=== PATIENT | male | born 1960 | race Caucasian/White ===

== ENCOUNTER 2022-05-03 16:18 | Inpatient (IN) | payer MEDICAID ==
[~2022-05-03] VITALS: Ht 172.7 cm; Wt 68.9 kg
[2022-05-03] VITALS (8 sets, daily range): BP systolic 84–131
--- NOTE | 2022-05-03 16:20 | NUR ---
RECEIVED PT FROM VALE FLYNN. PT CHARLESA FROM [facility] FOR HYPOXIA WAS BEING TREATED AT [facility] FOR PNEUMONIA, WHEN PT SUDDENLY DESATURATED. PT TRACH, CAN NOD APROPRIATELY TO YES OR NO QUESTIONS. RT AT BEDSIDE PLACING PT ON VENT TO SETTINGS: AC, RR 18, TV 500, PEEP 6, FI02 AT 40%. PT DESATURATED TO 85%, FIO2 WAS INCREASED TO 100%. RHONCHI NOTED TO BILATERAL LOBES. PT HAS RUBI S1S2. ABDOMEN SOFT, NONDISTENDED. GTUBE IN PLACE, SITE WNL. DISTAL PULSES NORMAL, NO PERIPHERAL EDEMA. SKIN HOT, CDI. PT HAS TEMP 101.3, COOLING MEASURES IN PLACE. IV CATH 18G TO RAC. SITE WNL, S/L. PT DENIES PAIN. SIDERAILS UP X2.
[2022-05-03] MEDS ORDERED: NACL 0.9% 1,000 ML IV ONE (16:30)
[2022-05-03] MEDS ORDERED: CEFEPIME 1 GM in D5W 50 ML IV ONE (16:30)
[2022-05-03] MEDS ORDERED: CEFEPIME 1 GM/VIAL (MAXIPIME) ONE (16:46)
--- NOTE | 2022-05-03 16:50 | NUR ---
RT NOTE: 1650 Increased rate to 20 per ABG pCO2 value and per Dr Ramachandran verbal order. Patient tolerating change. Will continue to monitor and titrate FiO2 as tolerated by patient.
[2022-05-03] MEDS ORDERED: ACETAMINOPHEN 650 MG/20.3 ML UDC PO ONE (17:00)
[2022-05-03 17:12] LABS: RED CELL DISTRIBUTION WIDTH 13.6 % (9.0-15.0)
[2022-05-03 17:30] LABS: HEMATOCRIT 35.5 % (36-54); MEAN CORPUSCULAR VOLUME 95 fL (79.0-98.0); PLATELET COUNT (AUTO) 359 K/uL (130-430); RED BLOOD CELL COUNT(AUTO) 3.73 MIL/uL (4.2-6.2); WHITE BLOOD COUNT (AUTO) 19.2 K/uL (4.8-10.8)
--- NOTE | 2022-05-03 17:53 | NUR ---
TYLENOL VIA GT GIVEN FOR TEMP 101.3.
[2022-05-03 18:06] LABS: BAND % (MANUAL) 32 % (0-6); LYMPHOCYTES % (MANUAL) 1 % (20-46); MONOCYTES % (MANUAL) 1 % (0-11)
[2022-05-03 18:09] LABS: ANION GAP 3 (5-15); CALCIUM 8.1 mg/dL (8.4-11.0); CHLORIDE 100 mmol/L (98-107); CREATININE 0.64 mg/dL (0.55-1.30); GLUCOSE 111 mg/dL (70-99); POTASSIUM 3.8 mmol/L (3.5-5.1); UREA NITROGEN, BLOOD 17 mg/dL (8-21)
[2022-05-03] MEDS ORDERED: ALBU8.5H5 NEB ×2 (18:12)
[2022-05-03] MEDS ORDERED: LORA-259 GT (18:12)
[2022-05-03] MEDS ORDERED: ASCO500L4 GT (18:12)
[2022-05-03] MEDS ORDERED: ACET-2051 GT (18:12)
[2022-05-03 18:16] LABS: GFR AFRICAN AMERICAN 164 mL/min (>90)
[2022-05-03 18:20] LABS: ALANINE AMINOTRANSFERASE 96 U/L (12-78); ALBUMIN 0.8 g/dL (3.4-4.8); ASPARTATE AMINOTRANSFERASE 115 U/L (10-37); TOTAL BILIRUBIN 0.5 mg/dL (0.0-1.0)
[2022-05-03] MEDS ORDERED: LANS30CA53 GT (18:39)
[2022-05-03] MEDS ORDERED: MELA1TAB17 GT (18:39)
[2022-05-03] MEDS ORDERED: CYAN50009 GT (18:39)
[2022-05-03] MEDS ORDERED: MIDO2.5T GT (18:39)
[2022-05-03] MEDS ORDERED: CHLO473M12 PO (18:39)
[2022-05-03] MEDS ORDERED: DOCU100T10 GT (18:39)
[2022-05-03] MEDS ORDERED: ZINC50TA15 GT (18:39)
[2022-05-03] MEDS ORDERED: GLIP5TAB26 GT (18:39)
[2022-05-03] MEDS ORDERED: AMIN30LI2 GT (18:39)
[2022-05-03] MEDS ORDERED: ROCPM1 IV (18:39)
[2022-05-03] MEDS ORDERED: ACET-2634 GT (18:39)
[2022-05-03] MEDS ORDERED: MULT-976 GT (18:39)
--- NOTE | 2022-05-03 18:40 | NUR ---
Medication reconciliation completed with information provided by ZadegoABONITA. Any prior medication reconciliation on file was reviewed and corrected.
--- NOTE | 2022-05-03 18:40 | NUR ---
PATIENT ARRIVES WITH [facility] STATING FULL CODE
--- NOTE | 2022-05-03 18:55 | NUR ---
Admit bed requested Patient will be admitted to care of . Admitted to ICU unit. Diagnosis PNEUMONIA, RESPITORY FAILURE Inpatient (Yes or No) YES Observation (Yes or No) NO Orientation concerns or request close to nursing station (Yes or No) NO Covid Status PENDING On vent or bipap YES Isolation requirements PENDING Needs a sitter NO From Home (Yes or if No enter name of facility) [facility] Requires Dialysis (Yes or No) NO Med Rec Completed (Yes of No) YES
--- NOTE | 2022-05-03 19:26 | NUR ---
PT ENDORSED TO [facility] SMALLWOOD. ALL QUESTIONS AND CONCERNS ADDRESSED.
--- NOTE | 2022-05-03 19:29 | NUR ---
Pt received resting in bed, HR 122 ST, bp 97/50. Per report, pt was given Tylenol for fever. Temp rechecked at 1926, 97.2. Pt able to nod yes/no to questions. Denies discomfort at this time. at bedside. -Fifi COLLAZO
[2022-05-03 19:50] LABS: BILIRUBIN,URINE NEGATIVE (NEGATIVE); BLOOD, URINE NEGATIVE (NEGATIVE); CLARITY/URINE CLEAR (CLEAR); COLOR,URINE ORANGE (YELLOW); GLUCOSE,URINE NEGATIVE (NEGATIVE); KETONES,URINE NEGATIVE (NEGATIVE); LEUKOCYTE ESTERASE ,URINE NEGATIVE (NEGATIVE); NITRITE, URINE NEGATIVE (NEGATIVE); PROTEIN URINE 2+ (NEGATIVE)
[2022-05-03 20:35] LABS: BACTERIA,URINE FEW /HPF (None Seen); RBC,URINE 0-3 /HPF (0-3); WBC,URINE 0-3 /HPF (0-3)
--- NOTE | 2022-05-03 21:20 | NUR ---
Patient admitted to ICU bed 6 with RT, RN, and EMT. Belongings list completed. Complete and up to date summary report printed. SBAR report given at bedside to Julianne RN with opportunity for questions.
--- NOTE | 2022-05-03 22:10 | NUR ---
ADMIT NOTE Received pt from ED transported via gurney. Report taken from VALE Calix. Bath given. Pt is A/Ox1. Pt has a trach and RR 20. Pt is in sinus rhythm with hypotension. Pt is incontinent of urine and stool. Pt has limited ROM of lower and upper extremities. Pt has a pressure sore on sacrum pictures taken. All safety measures in place and will continue to monitor.
--- NOTE | 2022-05-03 22:30 | NUR ---
RT NOTES PT WAS ADMITTED AND TRANSFERRED TO ICU 6, WITH RN,RT,AND EMT, WITH NO ISSUES. PT WAS BAGGED WITH 100% FIO2 VIA AMBU BAG. NO RESP. DISTRESS NOTED. PT WAS PLACED BACK ON VENT WITH NO ADVERSE EVENTS.
[2022-05-04] VITALS (30 sets, daily range): BP systolic 62–144
--- NOTE | 2022-05-04 07:40 | NUR ---
RT NOTES FIO2 TO 0.80 PER TITRATION ORDER. RN MADE AWARE.
--- NOTE | 2022-05-04 08:00 | NUR ---
Received patient awake and responsive with tracheostomy to prescribed settings. Vital signs stable. Will continuously monitor.
--- NOTE | 2022-05-04 08:30 | NUR ---
Dr. Desouza at bedside to assess.
[2022-05-04 08:43] LABS: BASOPHILS % (AUTO) 0.2 % (0.0-2.0); HEMATOCRIT 28.4 % (36-54); LYMPHOCYTES # (AUTO) 0.5 K/uL (1.0-5.5); LYMPHOCYTES % (AUTO) 3.6 % (20.5-51.5); MEAN CORPUSCULAR VOLUME 96 fL (79.0-98.0); MONOCYTES # (AUTO) 0.5 K/uL (0.0-1.0); MONOCYTES % (AUTO) 3.4 % (1.7-9.3); NEUTROPHILS # (AUTO) 13.1 K/uL (1.8-7.7); NEUTROPHILS % (AUTO) 92.8 % (40.0-70.0); PLATELET COUNT (AUTO) 300 K/uL (130-430); RED BLOOD CELL COUNT(AUTO) 2.95 MIL/uL (4.2-6.2); RED CELL DISTRIBUTION WIDTH 13.7 % (9.0-15.0); WHITE BLOOD COUNT (AUTO) 14.1 K/uL (4.8-10.8)
[2022-05-04 09:14] LABS: CREATININE 0.57 mg/dL (0.55-1.30); PHOSPHORUS 2.1 mg/dL (2.7-4.5); POTASSIUM 3.7 mmol/L (3.5-5.1)
--- NOTE | 2022-05-04 09:55 | NUR ---
RT NOTES FIO2 TO 0.60 PER TITRATION ORDER. WILL MONITOR PT.
--- NOTE | 2022-05-04 11:26 | NUR ---
RT NOTES Elevated PIP reported to RN.
[2022-05-04] MEDS ORDERED: ALBUTEROL SULFATE 0.083% 2.5 MG/3 ML VIAL.NEB INH ONE (11:57)
[2022-05-04] MEDS ORDERED: ALBUTEROL SULFATE 0.083% 2.5 MG/3 ML VIAL.NEB INH PRN (12:00)
[2022-05-04] MEDS: ALBUTEROL SULFATE 0.083% 2.5 MG/3 ML VIAL.NEB INH SCH (12:00)
[2022-05-04] MEDS: CEFEPIME 2 GM in D5W 100 ML IV SCH ×2 (12:02→21:54)
[2022-05-04] MEDS ORDERED: ACETAMINOPHEN 650 MG/20.3 ML UDC ONE (12:59)
[2022-05-04] MEDS ORDERED: ACETAMINOPHEN 650 MG/20.3 ML UDC GT PRN (13:00)
[2022-05-04] MEDS ORDERED: GLIP5TAB13 GT (13:05)
[2022-05-04] MEDS ORDERED: CHLO473M5 PO (13:05)
[2022-05-04] MEDS ORDERED: MELA5TAB12 GT (13:05)
[2022-05-04] MEDS ORDERED: CYAN500T47 GT (13:05)
--- NOTE | 2022-05-04 14:02 | NUR ---
CONSULTATION PAGED/CALLED Reason for Consultation: PNEUMONIA, SEPSIS Person Who was Notified: MOISE Consulting Physician: DR ARREDONDO Police Lieutenant Precinct Specialty: I.D. Ordering Physician: DR LEE
--- NOTE | 2022-05-04 14:43 | NUR ---
Report received from VALE Cardona for continuity of care. Patient in stable condition. No distress noted. Patient vital signs taken. Turned and cleaned patient with patient's at bedside.
[2022-05-04 15:08] LABS: INR 1.1 (0.80-1.20); PROTHROMBIN TIME 11.4 SECS (9.5-12.5)
--- NOTE | 2022-05-04 15:46 | NUR ---
Call placed for ID consult Dr. Luis for patient consult.
[2022-05-04] MEDS: FAMOTIDINE PF 20 MG/2 ML VIAL IVP SCH (16:41)
--- NOTE | 2022-05-04 17:00 | NUR ---
RT NOTES Due to low saturation, FIO2 100% SAT 90%. Rn to call dr for change in pt. condition.
--- NOTE | 2022-05-04 17:00 | NUR ---
Spoke with RT regarding O2 saturation dropping to 88-89% at the ordered settings. Was told to increase to 100% on vent settings. Dr. Desouza made aware of episode.
--- NOTE | 2022-05-04 17:01 | NUR ---
Dr. Balderrama gave new orders for vent settings on pressure control. RT adjusted vent according to orders.
--- NOTE | 2022-05-04 17:35 | NUR ---
RT NOTES vent settings to PC 28 to achieve target VT 400-450, RR 20, PEEP 6, I-[id number]. Pt. appears to tolerate new settings. will endorse to oncoming RT to draw ABG 1 hour post change.
--- NOTE | 2022-05-04 18:10 | NUR ---
Called placed out to CRIS Silver, for orders. EUGENIO Hopper made aware.
[2022-05-04] MEDS ORDERED: VANCOMYCIN HCL 1,000 MG in NS 250 ML IV SCH ×2 (18:30→18:45)
--- NOTE | 2022-05-04 18:34 | NUR ---
Spoke with Dr. Codey RN regarding ID consult and any change in antibiotics. Updated Dr. Alegre regarding patient's dose of antibiotics. Patient's family member made aware.
--- NOTE | 2022-05-04 18:45 | NUR ---
Patient found having agonal breathing with oxygen saturation 88%
[2022-05-04] MEDS ORDERED: MIDAZOLAM IN NACL,ISO-OSMOT/PF 100 ML IV PRN (19:15)
[2022-05-04] MEDS ORDERED: MIDAZOLAM IN NACL,ISO-OSMOT/PF 100 ML IV ONE (19:17)
--- NOTE | 2022-05-04 19:20 | NUR ---
Patient found to have agonal breathing in bed. CN Ruchi notified. Vital signs taken. T- 97.4 F, P- 114, RR: 14, %O2: 89% on PC setting on mechanical ventilator, Pain: FLACC scale not responsive to painful stimuli. Dr. Desouza called and new orders noted. RT made aware of situation. weight shifter RN made aware. Patient turned accordingly. Patient still had agonal respirations despite new orders carried out. Patient's family made aware of the situation.
[2022-05-04] MEDS ORDERED: METHYLPREDNISOLONE SOD SUCC 40 MG/ML VIAL IVP ONE (19:30)
--- NOTE | 2022-05-04 19:30 | NUR ---
RN Sandor Calderon to assume care after receiving report from day RN.
[2022-05-04] MEDS: HEPARIN SODIUM,PORCINE 5,000 UNITS/ML VIAL SUBCUT SCH (21:55)
[2022-05-04] MEDS: VANCOMYCIN HCL 1,000 MG in NS 250 ML IV SCH (21:55)
--- NOTE | 2022-05-04 23:30 | NUR ---
Dr Claros updated on patient's condition, notified of ABG results and persistent hypotension. Orders received and readback/verified.
[2022-05-04] MEDS ORDERED: NS 500 ML IV ONE (23:45)
[2022-05-05] VITALS (31 sets, daily range): BP systolic 79–134
--- NOTE | 2022-05-05 00:30 | NUR ---
and family members at bedside throughout night. states this change in condition began yesterday 05.04.22 at "about 2:30 in the afternoon".
[2022-05-05] MEDS: NACL 0.9% 1,000 ML IV SCH ×2 (00:55→10:57)
[2022-05-05] MEDS: METHYLPREDNISOLONE SOD SUCC 40 MG/ML VIAL IVP SCH ×4 (00:56→18:07)
[2022-05-05] MEDS ORDERED: NOREPINEPHRINE 4 MG/4 ML VIAL IV ONE ×2 (01:43→11:35)
[2022-05-05] MEDS: NOREPINEPHRINE BITARTRATE 4 MG in NS 246 ML IV PRN (02:25)
[2022-05-05] MEDS: ALBUTEROL SULFATE 0.083% 2.5 MG/3 ML VIAL.NEB INH SCH ×4 (06:07→19:37)
[2022-05-05] MEDS: VANCOMYCIN HCL 1,000 MG in NS 250 ML IV SCH ×3 (06:29→21:15)
[2022-05-05 07:26] LABS: BASOPHILS # (AUTO) 0.1 K/uL (0.0-0.2); BASOPHILS % (AUTO) 0.3 % (0.0-2.0); EOSINOPHILS % (AUTO) 0.1 % (0.0-4.0); HEMATOCRIT 30.2 % (36-54); LYMPHOCYTES # (AUTO) 0.2 K/uL (1.0-5.5); LYMPHOCYTES % (AUTO) 1.1 % (20.5-51.5); MEAN CORPUSCULAR VOLUME 99 fL (79.0-98.0); MONOCYTES # (AUTO) 0.3 K/uL (0.0-1.0); NEUTROPHILS # (AUTO) 16.8 K/uL (1.8-7.7); NEUTROPHILS % (AUTO) 96.5 % (40.0-70.0); PLATELET COUNT (AUTO) 362 K/uL (130-430); RED BLOOD CELL COUNT(AUTO) 3.05 MIL/uL (4.2-6.2); WHITE BLOOD COUNT (AUTO) 17.4 K/uL (4.8-10.8)
[2022-05-05 07:47] LABS: ALBUMIN 0.6 g/dL (3.4-4.8); CALCIUM 8.2 mg/dL (8.4-11.0); CREATININE 1.03 mg/dL (0.55-1.30); POTASSIUM 5.3 mmol/L (3.5-5.1); TOTAL BILIRUBIN 0.2 mg/dL (0.0-1.0)
--- NOTE | 2022-05-05 07:50 | NUR ---
RT NOTES FIO2 TO 0.90 PER TITRATION ORDER. RN MADE AWARE. WILL MONITOR PT.
--- NOTE | 2022-05-05 08:55 | NUR ---
TIME OUT DR LAUREN IN THE ROOM. CONSENT OBTAINED FROM PT'S MARIO ALBERTO FOR THE PLACEMENT OF CENTRAL LINE. BRUNEIAN SPEAKING NURSE ROLLY EXPLAINED THE RISK AND BENEFITS OF THE USE OF CENTRAL CATHETER. PROCEDURE STARTED. ACCESSED THE NECK AREA.
[2022-05-05] MEDS: HEPARIN SODIUM,PORCINE 5,000 UNITS/ML VIAL SUBCUT SCH ×2 (09:00→21:16)
--- NOTE | 2022-05-05 09:10 | NUR ---
IV ACCESS NEW IV INSERTED BY DR LAUREN INTO LEFT JUGULAR AREA, OPSITE DRESSING INTACT, WITH BIOPATCH TO SITE. MILD BLEEDING OBSERVED. DRY GAUZE APPLIED TO KEEP AREA DRY.
[2022-05-05] MEDS: CEFEPIME 2 GM in D5W 100 ML IV SCH ×2 (10:08→21:15)
--- NOTE | 2022-05-05 12:15 | NUR ---
RT NOTES FIO2 TO 100% DUE TO LOW SAT 90-91%. RN AWARE
[2022-05-05] MEDS: FAMOTIDINE PF 20 MG/2 ML VIAL IVP SCH (13:23)
--- NOTE | 2022-05-05 14:00 | NUR ---
HYGIENE ALL SHEETS CHANGED, BEDBATH PROVIDED. BUTTOCKS WOUND CLEANSED, APPLIED MOISTURE BARRIER CREAM TO WOUND EDGES AND COVERED WITH FOAM DRESSING. DRY GAUZE REMOVED FROM LEFT SIDE OF THE NECK, AREA DRY.
--- NOTE | 2022-05-05 15:38 | NUR ---
WOUND EVALUATION: Wound Consult received from Dr. Jacobs. Thank you, Dr. Jacobs, for the consult. Patient received in a Cyrus Bed with an Isoflex BLANCHE mattress with low air loss therapy initiated, eyes open, nonverbal, nonresponsive to verbal commands. Patient is unable to turn in bed independently. Iggy Score is a 7. Past Medical History: Tracheostomy dependent, G-tube, history of Respiratory Failure, Diabetes Mellitus. Patient was being treated for Sepsis/Pneumonia with Ceftriaxone at his facility. Recent Labs: WBC 17.4, RBC 3.05, hemoglobin 9.9, hematocrit 30.2, potassium 5.3, BUN 34, creatinine 1.03, GFR 78, glucose 278, calcium 8.2, AST 109, ALT 100, alkaline phosphatase 141, STP 5.7, albumin 0.6. Microbiology: Blood culture results x2 in progress. Endotracheal sputum culture results in progress. MRSA screen results negative. Urine culture results negative. Intrinsic factors that delay wound healing: Respiratory Failure, Diabetes Mellitus. Extrinsic factors that delay wound healing: Immobility. Per assessment by Dr. Jacobs: PNA, Hypoxia, chronic Hypoxic Respiratory Failure, s/p Tracheostomy, Transaminitis, Debility, Failure to Thrive. Wound Assessment: 1. Left Buttock: Stage II pressure ulcer, present on admission. Wound bed has 100% red tissue. No odor, no drainage. Helga-wound intact. Surrounding tissue has dark discolored skin. Measures 4.5 cm x 8.5 cm. Recommend: Cleanse wound with normal saline. Apply moisture barrier cream to helga-wound. Cover with Therahoney dressing. Perform wound care daily, and as needed for dressing soiling or dislodgement. 2. Right Buttock: Area of dark discolored skin, present on admission. Recommend: Cleanse involved area with mild soap and water for soiling. Gently pat dry. Apply a moisture barrier cream to site. Or with foam dressing for protection. For site care daily, and as needed for dressing soiling or dislodgment. 3. Left Lateral Mid Thigh: Surgical incision, present on admission. Incision is approximated, with small areas of black scab present no odor, no drainage. Dry, stable. Recommend: No dressing needed. Continue to monitor site every shift. Also recommend: Reposition patient side to side only every 2 hours with pillow support and off-load pressure areas with pillows for pressure re-distribution. Offload, elevate and float bilateral heels with 1 pillow lengthwise under each extremity at all times. Perform skin care and monitor skin integrity Q shift. Use moisture barrier cream on buttocks and other moisture susceptible areas QID and as needed for soiling. Maintain patient on a low air-loss mattress.
--- NOTE | 2022-05-05 16:10 | NUR ---
RT NOTES FIO2 TO 0.90 PER TITRATION ORDER. RN MADE AWARE.
[2022-05-06] VITALS (30 sets, daily range): BP systolic 88–137
[2022-05-06] MEDS: METHYLPREDNISOLONE SOD SUCC 40 MG/ML VIAL IVP SCH ×4 (00:21→18:33)
[2022-05-06] MEDS: INSULIN REGULAR, HUMAN 100 UNITS/ML, 3 ML VIAL (humuLIN R) SUBCUT PRN ×4 (00:23→18:35)
[2022-05-06] MEDS: ALBUTEROL SULFATE 0.083% 2.5 MG/3 ML VIAL.NEB INH SCH ×4 (00:44→19:20)
[2022-05-06] MEDS: NACL 0.9% 1,000 ML IV SCH ×2 (05:28→15:45)
[2022-05-06] MEDS: VANCOMYCIN HCL 1,000 MG in NS 250 ML IV SCH ×2 (06:28→13:16)
[2022-05-06 08:45] LABS: BASOPHILS % (AUTO) 0.3 % (0.0-2.0); HEMATOCRIT 27.4 % (36-54); LYMPHOCYTES # (AUTO) 0.2 K/uL (1.0-5.5); LYMPHOCYTES % (AUTO) 1.7 % (20.5-51.5); MEAN CORPUSCULAR VOLUME 98 fL (79.0-98.0); MONOCYTES # (AUTO) 0.4 K/uL (0.0-1.0); MONOCYTES % (AUTO) 3.2 % (1.7-9.3); NEUTROPHILS # (AUTO) 12.8 K/uL (1.8-7.7); NEUTROPHILS % (AUTO) 94.8 % (40.0-70.0); PLATELET COUNT (AUTO) 331 K/uL (130-430); RED BLOOD CELL COUNT(AUTO) 2.79 MIL/uL (4.2-6.2); RED CELL DISTRIBUTION WIDTH 14.3 % (9.0-15.0); WHITE BLOOD COUNT (AUTO) 13.5 K/uL (4.8-10.8)
[2022-05-06] MEDS: HONEY WOUND DRESSING 1 EACH TP SCH (08:45)
[2022-05-06] MEDS: CEFEPIME 2 GM in D5W 100 ML IV SCH (08:45)
[2022-05-06 08:47] LABS: ALBUMIN 0.7 g/dL (3.4-4.8); CALCIUM 7.8 mg/dL (8.4-11.0); CREATININE 1.56 mg/dL (0.55-1.30); POTASSIUM 5.1 mmol/L (3.5-5.1); TOTAL BILIRUBIN 0.3 mg/dL (0.0-1.0)
[2022-05-06] MEDS: HEPARIN SODIUM,PORCINE 5,000 UNITS/ML VIAL SUBCUT SCH ×2 (08:56→21:15)
--- NOTE | 2022-05-06 12:31 | NUR ---
CONSULTATION PAGED PRIORITY: ROUTINE REASON FOR CONSULTATION?:DANIEL WAS CONSULT CALLED:Y PERSON WHO WAS NOTIFIED:FILIBERTO CONSULTING PHYSICIAN:FRACISCO ROMERO ( SENIOR DOT NET DEVELOPER) BESSEMER CONVERTER OPERATOR SPECIALTY:NEPHRO BESSEMER CONVERTER OPERATOR PHONE NUMBER:[phone]
[2022-05-06] MEDS: FAMOTIDINE PF 20 MG/2 ML VIAL IVP SCH (13:15)
--- NOTE | 2022-05-06 14:15 | NUR ---
Dietitian Recommendations * Glucerna 1.5 at 40 ml/hr (goal rate), Binu BID, Free Water Flush: 150 ml Q6h (per physician) via GT Provides: 1600 kcal/day, 84 gm protein/day, 1329 ml free water/day Meets: 88% of estimated caloric needs and 101% of upper end of estimated protein needs LP, MS, RD Please refer to Nutrition Assessment for details. Addendum: 05/06/22 at [address] Amended: Links added.
--- NOTE | 2022-05-06 14:43 | NUR ---
1435 RATE OF [address] ORDER. COLLAZO AWARE. WILL CONT TO MONITOR. Addendum: 05/06/22 at 1443 by Katrin Sidhu RT Amended: Links added.
--- NOTE | 2022-05-06 17:05 | NUR ---
0930 turned off levo with pt bp stable 12[address] Dr Herrera believed pt didnt need it anymore, informed Dr of prior day potassium [address] Cox of critical lab abg, rate change order to 22 given to RT pump attendant changed feeding order to glucerna 1.5 awaiting from dietary to give to pt
--- NOTE | 2022-05-06 17:56 | NUR ---
1624 TRACH CARE DONE, PT TOLERATED WELL. Addendum: 05/06/22 at 1757 by Katrin Sidhu RT Amended: Links added.
--- NOTE | 2022-05-06 20:15 | NUR ---
RT NOTES ASSISTED WITH PT TRANSFER TO CT SCAN OF THE CHEST. PLACED PT ON 100% FIO2 VIA AMBU BAG DURING TRANSFER. BAGGED PT THROUGHOUT TRANSFER. PLACED PT BACK ON VENT WITH CURRENT SETTINGS UPON RETURN. NO SOB NOTED. Addendum: 05/06/22 at 2127 by Keegan Grialdo RT Amended: Links added.
[2022-05-06] MEDS: CEFEPIME 2 GM in NS 100 ML IV SCH (21:14)
[2022-05-07] VITALS (31 sets, daily range): BP systolic 109–147
[2022-05-07] MEDS: METHYLPREDNISOLONE SOD SUCC 40 MG/ML VIAL IVP SCH ×4 (00:22→19:01)
[2022-05-07] MEDS: INSULIN REGULAR, HUMAN 100 UNITS/ML, 3 ML VIAL (humuLIN R) SUBCUT PRN ×4 (00:28→19:16)
[2022-05-07] MEDS: ALBUTEROL SULFATE 0.083% 2.5 MG/3 ML VIAL.NEB INH SCH ×4 (01:06→19:46)
[2022-05-07] MEDS: NACL 0.9% 1,000 ML IV SCH ×2 (05:05→09:20)
[2022-05-07] MEDS: HONEY WOUND DRESSING 1 EACH TP SCH (09:00)
[2022-05-07] MEDS: CEFEPIME 2 GM in NS 100 ML IV SCH ×2 (09:07→20:37)
[2022-05-07] MEDS: HEPARIN SODIUM,PORCINE 5,000 UNITS/ML VIAL SUBCUT SCH ×2 (09:20→20:39)
[2022-05-07 09:37] LABS: BASOPHILS % (AUTO) 0.3 % (0.0-2.0); HEMATOCRIT 28.9 % (36-54); LYMPHOCYTES # (AUTO) 0.2 K/uL (1.0-5.5); LYMPHOCYTES % (AUTO) 1.8 % (20.5-51.5); MEAN CORPUSCULAR VOLUME 98 fL (79.0-98.0); MONOCYTES # (AUTO) 0.4 K/uL (0.0-1.0); MONOCYTES % (AUTO) 3.3 % (1.7-9.3); NEUTROPHILS # (AUTO) 11.8 K/uL (1.8-7.7); NEUTROPHILS % (AUTO) 94.6 % (40.0-70.0); PLATELET COUNT (AUTO) 299 K/uL (130-430); RED BLOOD CELL COUNT(AUTO) 2.94 MIL/uL (4.2-6.2); RED CELL DISTRIBUTION WIDTH 14.2 % (9.0-15.0); WHITE BLOOD COUNT (AUTO) 12.4 K/uL (4.8-10.8)
[2022-05-07] MEDS ORDERED: *TOBRAMYCIN PER PHARMACY XX PRN (10:15)
[2022-05-07] MEDS: FAMOTIDINE PF 20 MG/2 ML VIAL IVP SCH (13:54)
[2022-05-07 18:10] LABS: ERYTHROCYTE SEDIMENTATION RATE 64 MM/HR (0-15)
[2022-05-07 18:42] LABS: ANION GAP 10 (5-15); CALCIUM 8.4 mg/dL (8.4-11.0); CHLORIDE 112 mmol/L (98-107); CREATININE 1.54 mg/dL (0.55-1.30); GLUCOSE 247 mg/dL (70-99); PHOSPHORUS 3.5 mg/dL (2.7-4.5); POTASSIUM 5.1 mmol/L (3.5-5.1); UREA NITROGEN, BLOOD 81 mg/dL (8-21)
[2022-05-07 18:55] LABS: C-REACTIVE PROTEIN QUANT < 0.2 mg/dL (0-0.5); GFR AFRICAN AMERICAN 59 mL/min (>90)
[2022-05-08] VITALS (29 sets, daily range): BP systolic 92–142
[2022-05-08 00:12] LABS: BILIRUBIN,URINE NEGATIVE (NEGATIVE); BLOOD, URINE 1+ (NEGATIVE); COLOR,URINE YELLOW (YELLOW); GLUCOSE,URINE TRACE (NEGATIVE); KETONES,URINE NEGATIVE (NEGATIVE); LEUKOCYTE ESTERASE ,URINE NEGATIVE (NEGATIVE); NITRITE, URINE NEGATIVE (NEGATIVE); PROTEIN URINE TRACE (NEGATIVE); UROBILINOGEN,URINE 0.2 (0.2-1.0)
[2022-05-08 00:13] LABS: CLARITY/URINE TURBID (CLEAR)
[2022-05-08] MEDS: INSULIN REGULAR, HUMAN 100 UNITS/ML, 3 ML VIAL (humuLIN R) SUBCUT PRN ×4 (00:17→18:16)
[2022-05-08] MEDS: METHYLPREDNISOLONE SOD SUCC 40 MG/ML VIAL IVP SCH ×2 (00:21→06:54)
[2022-05-08 00:25] LABS: BACTERIA,URINE FEW /HPF (None Seen); RBC,URINE 0-3 /HPF (0-3); WBC,URINE 0-3 /HPF (0-3)
[2022-05-08 00:26] LABS: FINE GRANULAR CASTS,URINE 0-10 /LPF (None Seen); MUCUS,URINE None Seen /LPF (None Seen)
[2022-05-08] MEDS: ALBUTEROL SULFATE 0.083% 2.5 MG/3 ML VIAL.NEB INH SCH ×4 (01:20→19:40)
[2022-05-08 07:27] LABS: ALBUMIN 0.9 g/dL (3.4-4.8); C-REACTIVE PROTEIN QUANT 18.4 mg/dL (0-0.5); CREATININE 1.46 mg/dL (0.55-1.30); POTASSIUM 5.2 mmol/L (3.5-5.1); TOTAL BILIRUBIN 0.4 mg/dL (0.0-1.0)
[2022-05-08 07:55] LABS: BASOPHILS % (AUTO) 0.3 % (0.0-2.0); HEMATOCRIT 29.7 % (36-54); LYMPHOCYTES # (AUTO) 0.2 K/uL (1.0-5.5); LYMPHOCYTES % (AUTO) 1.7 % (20.5-51.5); MEAN CORPUSCULAR VOLUME 97 fL (79.0-98.0); MONOCYTES # (AUTO) 0.2 K/uL (0.0-1.0); MONOCYTES % (AUTO) 2.1 % (1.7-9.3); NEUTROPHILS # (AUTO) 11.3 K/uL (1.8-7.7); NEUTROPHILS % (AUTO) 95.9 % (40.0-70.0); PLATELET COUNT (AUTO) 277 K/uL (130-430); RED BLOOD CELL COUNT(AUTO) 3.07 MIL/uL (4.2-6.2); RED CELL DISTRIBUTION WIDTH 14.1 % (9.0-15.0); WHITE BLOOD COUNT (AUTO) 11.8 K/uL (4.8-10.8)
[2022-05-08] MEDS: HONEY WOUND DRESSING 1 EACH TP SCH (09:00)
[2022-05-08] MEDS: CEFEPIME 2 GM in NS 100 ML IV SCH ×2 (10:14→21:02)
[2022-05-08] MEDS: HEPARIN SODIUM,PORCINE 5,000 UNITS/ML VIAL SUBCUT SCH ×2 (10:17→21:05)
[2022-05-08] MEDS ORDERED: SODIUM POLYSTYRENE SULFONATE 15 GM/60 ML UDBTL PO ONE (11:30)
--- NOTE | 2022-05-08 11:30 | NUR ---
decrease vt to 450 & increase peep to [address] hannah
--- NOTE | 2022-05-08 12:20 | NUR ---
RT NOTES FIO2 TO 0.70 PER TITRATION ORDER. WILL MONITOR PT.
[2022-05-08] MEDS: TOBRAMYCIN SULFATE 100 MG in NS 50 ML IV SCH ×2 (12:31→22:47)
[2022-05-08] MEDS: FAMOTIDINE PF 20 MG/2 ML VIAL IVP SCH (12:36)
[2022-05-08 13:19] LABS: ERYTHROCYTE SEDIMENTATION RATE 61 MM/HR (0-15)
[2022-05-08 16:28] LABS: URINE SODIUM, RANDOM 9 mmol/L (40-220)
[2022-05-08 18:15] LABS: VANCOMYCIN,RANDOM 23.6 ug/mL
--- NOTE | 2022-05-08 19:15 | NUR ---
Opening notes Received report from endorsing morning shift VALE Gifford for continuity of care. Patient is lying in bed with family members at the bedside with IVF NS @ TKO. Patient's vital signs blood pressure 145/67, heart rate 85, respirations 19, and SPO2 98% on ventilator. Ventilator settings AC 22, tidal volume 450, FIO2 60%, and peep of 5. Brantley catheter is in place draining to gravity. Bed is locked and in lowest position, fall and safety precautions is in place. Addendum: 05/09/22 at 0155 by Caridad Lagunas RN Patient's vital signs blood pressure 128/72, respirations 23, SPO2 91%, and heart rate 108. Addendum: 05/09/22 at 0157 by Caridad Lagunas RN peep of 10.
[2022-05-09] VITALS (31 sets, daily range): BP systolic 87–167
[2022-05-09] MEDS: INSULIN REGULAR, HUMAN 100 UNITS/ML, 3 ML VIAL (humuLIN R) SUBCUT PRN ×3 (00:20→23:57)
[2022-05-09] MEDS: ACETAMINOPHEN 650 MG/20.3 ML UDC GT PRN (00:37)
[2022-05-09] MEDS: ALBUTEROL SULFATE 0.083% 2.5 MG/3 ML VIAL.NEB INH SCH ×4 (02:05→19:45)
[2022-05-09 06:34] LABS: BASOPHILS % (AUTO) 0.1 % (0.0-2.0); EOSINOPHILS % (AUTO) 0.1 % (0.0-4.0); HEMATOCRIT 27.8 % (36-54); LYMPHOCYTES # (AUTO) 0.3 K/uL (1.0-5.5); LYMPHOCYTES % (AUTO) 2.1 % (20.5-51.5); MEAN CORPUSCULAR VOLUME 99 fL (79.0-98.0); MONOCYTES # (AUTO) 0.4 K/uL (0.0-1.0); MONOCYTES % (AUTO) 3.2 % (1.7-9.3); NEUTROPHILS # (AUTO) 12.8 K/uL (1.8-7.7); NEUTROPHILS % (AUTO) 94.5 % (40.0-70.0); PLATELET COUNT (AUTO) 240 K/uL (130-430); RED BLOOD CELL COUNT(AUTO) 2.82 MIL/uL (4.2-6.2); RED CELL DISTRIBUTION WIDTH 14.3 % (9.0-15.0); WHITE BLOOD COUNT (AUTO) 13.6 K/uL (4.8-10.8)
[2022-05-09 06:51] LABS: CALCIUM 8.5 mg/dL (8.4-11.0); CREATININE 1.52 mg/dL (0.55-1.30); POTASSIUM 4.3 mmol/L (3.5-5.1)
--- NOTE | 2022-05-09 07:27 | NUR ---
RT NOTES Attempted to titrate FIO2 TO 0.60, but pt desaturated to 89-90%.
[2022-05-09] MEDS: CEFEPIME 2 GM in NS 100 ML IV SCH ×2 (09:19→20:48)
[2022-05-09] MEDS: HONEY WOUND DRESSING 1 EACH TP SCH (09:20)
[2022-05-09] MEDS: HEPARIN SODIUM,PORCINE 5,000 UNITS/ML VIAL SUBCUT SCH ×2 (09:22→20:49)
[2022-05-09] MEDS: TOBRAMYCIN SULFATE 100 MG in NS 50 ML IV SCH ×2 (11:46→22:27)
[2022-05-09] MEDS: FAMOTIDINE PF 20 MG/2 ML VIAL IVP SCH (15:19)
[2022-05-09] MEDS: VANCOMYCIN HCL 500 MG in NS 100 ML IV SCH ×2 (15:20→23:49)
--- NOTE | 2022-05-09 19:20 | NUR ---
Opening notes Received report from Leoma for continuity of care. Patient is lying in bed with family member at the bedside. Patient's vital signs blood pressure 121/75, heart rate 98, respirations 22, and SPO2 93% on ventilator. Ventilator settings AC 22, tidal volume 450, FIO2 65%, and peep of 10. Brantley catheter is in place draining to gravity. Bed is locked and in lowest position, fall and safety precautions is in place.
[2022-05-10] VITALS (29 sets, daily range): BP systolic 77–124
[2022-05-10] MEDS: ALBUTEROL SULFATE 0.083% 2.5 MG/3 ML VIAL.NEB INH SCH ×4 (01:00→19:11)
[2022-05-10 08:14] LABS: ALBUMIN 0.8 g/dL (3.4-4.8); CALCIUM 8.5 mg/dL (8.4-11.0); CREATININE 1.53 mg/dL (0.55-1.30); POTASSIUM 4.3 mmol/L (3.5-5.1); TOTAL BILIRUBIN 0.3 mg/dL (0.0-1.0)
[2022-05-10 08:50] LABS: BASOPHILS % (AUTO) 0.1 % (0.0-2.0); EOSINOPHILS % (AUTO) 0.3 % (0.0-4.0); LYMPHOCYTES # (AUTO) 0.4 K/uL (1.0-5.5); LYMPHOCYTES % (AUTO) 2.9 % (20.5-51.5); MEAN CORPUSCULAR VOLUME 98 fL (79.0-98.0); MONOCYTES # (AUTO) 0.2 K/uL (0.0-1.0); MONOCYTES % (AUTO) 1.6 % (1.7-9.3); NEUTROPHILS # (AUTO) 12.4 K/uL (1.8-7.7); NEUTROPHILS % (AUTO) 95.1 % (40.0-70.0); PLATELET COUNT (AUTO) 190 K/uL (130-430); RED BLOOD CELL COUNT(AUTO) 3.05 MIL/uL (4.2-6.2); RED CELL DISTRIBUTION WIDTH 14.5 % (9.0-15.0); WHITE BLOOD COUNT (AUTO) 13.1 K/uL (4.8-10.8)
[2022-05-10] MEDS: CEFEPIME 2 GM in NS 100 ML IV SCH ×2 (09:21→20:15)
[2022-05-10] MEDS: HONEY WOUND DRESSING 1 EACH TP SCH (09:22)
[2022-05-10] MEDS: HEPARIN SODIUM,PORCINE 5,000 UNITS/ML VIAL SUBCUT SCH ×2 (09:23→20:16)
[2022-05-10] MEDS: TOBRAMYCIN SULFATE 100 MG in NS 50 ML IV SCH ×2 (10:34→23:28)
--- NOTE | 2022-05-10 10:46 | NUR ---
Received patient this AM in stable condition. Patient was in the company of two daughters at bedside. Patient primary assessment and hygiene care performed in addition to turning. Confirmed with MD and family members that DNR order had been agreed to and signed by physician. Patient resting comfortably with no signs ofr symptoms of acute distress at this time.
[2022-05-10] MEDS: VANCOMYCIN HCL 500 MG in NS 100 ML IV SCH ×2 (12:37→23:58)
[2022-05-10] MEDS: FAMOTIDINE PF 20 MG/2 ML VIAL IVP SCH (12:38)
[2022-05-10] MEDS: INSULIN REGULAR, HUMAN 100 UNITS/ML, 3 ML VIAL (humuLIN R) SUBCUT PRN ×2 (12:40→23:58)
--- NOTE | 2022-05-10 12:53 | NUR ---
Patient stable showing no signs or symptoms of acute distress. Afternoon hygiene care completed with q2 hour turning and repositioning. Currently, two visitors are at bedside with no currents needs or requests.
--- NOTE | 2022-05-10 13:18 | NUR ---
Senior Financial Analyst PUTTIER made a second attempt to meet with family at pts. bedside. PUTTIER met with both daughters with Hilda (Yappn Monitor as choir leader). PUTTIER gave family her business card, introduced self and asked if they knew how their father was doing. Daughter did not know pts. prognosis and were unsure of pts. condition. PUTTIER told daughters that she wanted to check in with them to see how they were doing and if they needed anything. Both daughters seemed grateful and thanked PUTTIER. PUTTIER asked daughters if at any time, if they wanted to have someone come and say prayers with them and their father, PUTTIER could help them and could make some phone calls to have someone come. Daughters were so appreciative and thanked PUTTIER. PUTTIER will remain available as needed.
--- NOTE | 2022-05-10 17:13 | NUR ---
1615 fio2 to .80 sat 91% rn aware. Addendum: 05/10/22 at 1714 by Katrin Sidhu RT Amended: Links added.
--- NOTE | 2022-05-10 19:00 | NUR ---
Opening notes Received report from Haysi for continuity of care. Patient is lying in bed with family member at the bedside. Patient's vital signs blood pressure 86/41, heart rate 105, respirations 22, and SPO2 93% on ventilator. Ventilator settings AC 22, tidal volume 450, FIO2 100%, and peep of 10. Brantley catheter is in place draining to gravity. Bed is locked and in lowest position, fall and safety precautions is in place.
--- NOTE | 2022-05-10 19:13 | NUR ---
Patient stable at this time but blood pressure and O2 saturation are decreasing markedly. Discussed with oncoming night RN in report if Levophed is appropriate at this time. RN states if need be, she will consult with MD. DNR status confirmed with and family members at bedside. No sign or symptoms of distress with patient but Levophed will be started at this time per NOC RN.
[2022-05-10] MEDS: ACETAMINOPHEN 650 MG/20.3 ML UDC GT PRN (19:30)
[2022-05-10] MEDS ORDERED: NOREPINEPHRINE 4 MG/4 ML VIAL IV ONE (19:32)
[2022-05-10] MEDS: NOREPINEPHRINE BITARTRATE 4 MG in NS 246 ML IV PRN (19:32)
[2022-05-11] VITALS (26 sets, daily range): BP systolic 95–152
[2022-05-11] MEDS: ALBUTEROL SULFATE 0.083% 2.5 MG/3 ML VIAL.NEB INH SCH ×3 (01:55→13:43)
[2022-05-11] MEDS: NOREPINEPHRINE BITARTRATE 4 MG in NS 246 ML IV PRN ×3 (02:10→12:42)
[2022-05-11] MEDS: INSULIN REGULAR, HUMAN 100 UNITS/ML, 3 ML VIAL (humuLIN R) SUBCUT PRN ×2 (05:34→12:45)
[2022-05-11 06:54] LABS: BASOPHILS % (AUTO) 0.1 % (0.0-2.0); EOSINOPHILS % (AUTO) 0.1 % (0.0-4.0); HEMATOCRIT 28.3 % (36-54); LYMPHOCYTES # (AUTO) 0.5 K/uL (1.0-5.5); LYMPHOCYTES % (AUTO) 3.4 % (20.5-51.5); MEAN CORPUSCULAR VOLUME 100 fL (79.0-98.0); MONOCYTES # (AUTO) 0.3 K/uL (0.0-1.0); MONOCYTES % (AUTO) 1.9 % (1.7-9.3); NEUTROPHILS # (AUTO) 14.3 K/uL (1.8-7.7); NEUTROPHILS % (AUTO) 94.5 % (40.0-70.0); PLATELET COUNT (AUTO) 164 K/uL (130-430); RED BLOOD CELL COUNT(AUTO) 2.83 MIL/uL (4.2-6.2); RED CELL DISTRIBUTION WIDTH 14.9 % (9.0-15.0); WHITE BLOOD COUNT (AUTO) 15.1 K/uL (4.8-10.8)
[2022-05-11 07:04] LABS: ALBUMIN 0.7 g/dL (3.4-4.8); CALCIUM 8.7 mg/dL (8.4-11.0); CREATININE 1.81 mg/dL (0.55-1.30); TOTAL BILIRUBIN 0.4 mg/dL (0.0-1.0)
[2022-05-11 07:45] LABS: POTASSIUM 5.3 mmol/L (3.5-5.1)
[2022-05-11] MEDS: HEPARIN SODIUM,PORCINE 5,000 UNITS/ML VIAL SUBCUT SCH ×2 (09:00→20:59)
--- NOTE | 2022-05-11 09:20 | NUR ---
Patient received this AM with family at bedside. Patient resting with vital signs stable. Levophed infusing at this time. Patient assesed, turned and oral care provided at this time.
[2022-05-11] MEDS: HONEY WOUND DRESSING 1 EACH TP SCH (10:28)
[2022-05-11] MEDS: CEFEPIME 2 GM in NS 100 ML IV SCH ×2 (10:28→20:54)
[2022-05-11] MEDS: TOBRAMYCIN SULFATE 100 MG in NS 50 ML IV SCH (10:29)
[2022-05-11] MEDS: VANCOMYCIN HCL 500 MG in NS 100 ML IV SCH (12:43)
[2022-05-11] MEDS: FAMOTIDINE PF 20 MG/2 ML VIAL IVP SCH (12:46)
--- NOTE | 2022-05-11 14:20 | NUR ---
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 Pt also found w/ sepsis, hypotension, hypoxia, FTT, and DANIEL per physician notes Subjective Information: RD rounded to ICU and patient seen at bedside. RD witnessed patient on vent with TF running at goal rate. Per EMR, GRV noted at 20mL/hr, patient tolerating TF. No edema noted per EMR. Continues to be no documented BM since admit and no bowel regimen noted. Current Diet Order/Nutrition Support Glucerna 1.5 at 40 ml/hr x 24 hrs + Binu BID x 5 days; Free Water Flush: 350mL Q4 via GT x 0 days Pertinent Medications SSI, heparin, Pepcid, NS @ 100 mL Pertinent Labs BG 223 H, BUN 105 H, CRE 1.81 H, ALB 0.7 H, WBC 15.1 H, POC BG 211 H, Phos WNL, Na 163 H*, K 5.3 H Height: 5 feet 8.00 inches Weight: 152# Patient Weight: 68.946 kg Body Mass Index: 23.11 kg/m2 [place]/Adjusted Body Weight: 154#/70 kg %IBW: 99 Weight Status: Appropriate Usual Diet At Home: Glucerna 1.2 at 60 ml/hr x20 hrs (1200 cc/1440 kcal) per hard chart review Skin Integrity Comment: Iggy scale: 7 -- Street Flusher Driver note 05/05 revealed Stage II pressure ulcer, present on admission. 2. Right Buttock: Area of dark discolored skin, present on admission. 3. Left Lateral Mid-Thigh: Surgical incision, present on admission. Estimated Energy Expenditure (kcals/day) 1827 (PSU 2002b d/t critical illness; Ve: 10.7, Tmax: 37.7'C) Estimated Protein Required (g/day) 55-83 (0.8-1.2 gm/kg CBW d/t DANIEL, sepsis, critical illness) Estimated Fluid Required (l/day) Per physician d/t DANIEL Problem/Etiology/Signs/Symptoms Altered nutrition-related labs R/T endocrine dysfunction AEB elevated BG/POC BG lab values *On-going Increased nutritional needs R/T metabolic demands AEB estimated nutritional requirements for critical illness and wound healing *On-going Expected Outcomes/Goals - Monitor tolerance to EN support w/ goal of pt meeting >80% of estimated nutritional needs, labs trending WNL, normal GI function, and skin integrity/wt maintenance Dietitian Recommendations * Continue Glucerna 1.5 at 40 ml/hr (goal rate), Binu BID, Free Water Flush: 350 ml Q4h (per physician) via GT -- Provides: 1600 kcal/day, 84 gm protein/day, 1329 ml free water/day -- Meets: 88% of estimated caloric needs and 101% of upper end of estimated protein needs * Recommend initiating bowel regimen, per MD Follow Up High Risk: F/U in 2-3days
--- NOTE | 2022-05-11 14:25 | NUR ---
Dietitian Recommendations * Continue Glucerna 1.5 at 40 ml/hr (goal rate), Binu BID, Free Water Flush: 350 ml Q4h (per physician) via GT -- Provides: 1600 kcal/day, 84 gm protein/day, 1329 ml free water/day -- Meets: 88% of estimated caloric needs and 101% of upper end of estimated protein needs * Recommend initiating bowel regimen, per MD Please refer to nutrition F/U for details, thanks! CC, MPH, RDN
[2022-05-11] MEDS ORDERED: HEPARIN SODIUM,PORCINE 5,000 UNITS/ML VIAL ONE ×2 (14:59→15:04)
[2022-05-11] MEDS ORDERED: HEPARIN SODIUM,PORCINE 5,000 UNITS/ML VIAL MC ONE (15:00)
--- NOTE | 2022-05-11 16:47 | NUR ---
1620 peep to 8. sat 94%. will cont to monitor. Addendum: 05/11/22 at 1647 by Katrin Sidhu RT Amended: Links added.
[2022-05-11] MEDS: 0.45% NACL 1,000 ML IV SCH (16:59)
--- NOTE | 2022-05-11 20:23 | NUR ---
Patient non verbal eyes closed , @ the bedside Reposition & Turn also tolerate no SOB VENTILATOR minimal alarming TUBE FEEDING running 40 ML HR no s/sx of aspitaion HOB kept elevated chest movement symmetrical edema is noted to bilat pedal areas / .
[2022-05-12] VITALS (32 sets, daily range): BP systolic 84–134
[2022-05-12] MEDS: INSULIN REGULAR, HUMAN 100 UNITS/ML, 3 ML VIAL (humuLIN R) SUBCUT PRN ×2 (00:04→05:53)
--- NOTE | 2022-05-12 00:56 | NUR ---
Tube Feeding GTF tolerating Residual 10 ML , HOB kept elevated Water flush tolerate chest movement symmetrical / .
[2022-05-12] MEDS ORDERED: NOREPINEPHRINE 4 MG/4 ML VIAL IV ONE ×3 (02:58→21:49)
[2022-05-12] MEDS: 0.45% NACL 1,000 ML IV SCH ×3 (03:00→23:01)
[2022-05-12] MEDS: NOREPINEPHRINE BITARTRATE 4 MG in NS 246 ML IV PRN (03:02)
--- NOTE | 2022-05-12 03:55 | NUR ---
Reposition & Turning off loading with pillows on schedule no SOB noted kept clean also dry as needed , family at the bedside / activity tolerated skin dry also warm .
--- NOTE | 2022-05-12 05:15 | NUR ---
wound care implemented sacral left buttocks areas as ordered rosangela with over lay applied barrier cream as ordered patient tolerate procedures explained .
--- NOTE | 2022-05-12 07:15 | NUR ---
SBAR REPORT RECEIVED FROM TESSIE, ALL CARES ASSUMED.
[2022-05-12] MEDS: ALBUTEROL SULFATE 0.083% 2.5 MG/3 ML VIAL.NEB INH SCH ×2 (07:21→19:52)
--- NOTE | 2022-05-12 07:21 | NUR ---
rt notes 0720 Found pt on 60% fio2, pt saturating 96%. will cont to monitor pt.
[2022-05-12] MEDS: HEPARIN SODIUM,PORCINE 5,000 UNITS/ML VIAL SUBCUT SCH ×2 (08:43→20:44)
[2022-05-12] MEDS: CEFEPIME 2 GM in NS 100 ML IV SCH ×2 (08:44→20:44)
[2022-05-12] MEDS: HONEY WOUND DRESSING 1 EACH TP SCH (08:45)
[2022-05-12 08:52] LABS: BASOPHILS % (AUTO) 0.3 % (0.0-2.0); EOSINOPHILS # (AUTO) 0.1 K/uL (0.0-0.4); EOSINOPHILS % (AUTO) 0.8 % (0.0-4.0); HEMATOCRIT 29.3 % (36-54); LYMPHOCYTES # (AUTO) 0.5 K/uL (1.0-5.5); LYMPHOCYTES % (AUTO) 4.7 % (20.5-51.5); MEAN CORPUSCULAR VOLUME 100 fL (79.0-98.0); MONOCYTES # (AUTO) 0.2 K/uL (0.0-1.0); MONOCYTES % (AUTO) 1.9 % (1.7-9.3); NEUTROPHILS % (AUTO) 92.3 % (40.0-70.0); PLATELET COUNT (AUTO) 113 K/uL (130-430); RED BLOOD CELL COUNT(AUTO) 2.94 MIL/uL (4.2-6.2); RED CELL DISTRIBUTION WIDTH 14.8 % (9.0-15.0); WHITE BLOOD COUNT (AUTO) 10.8 K/uL (4.8-10.8)
[2022-05-12 09:10] LABS: ALBUMIN 0.7 g/dL (3.4-4.8); TOTAL BILIRUBIN 0.2 mg/dL (0.0-1.0)
--- NOTE | 2022-05-12 09:11 | NUR ---
rt notes 0911 Pt desaturating, found pt on 70% fio2, pt saturating 92%. will cont to monitor pt.
[2022-05-12 09:54] LABS: POTASSIUM 5.8 mmol/L (3.5-5.1)
[2022-05-12] MEDS: FAMOTIDINE PF 20 MG/2 ML VIAL IVP SCH (13:24)
[2022-05-12] MEDS ORDERED: HEPARIN SODIUM,PORCINE 5,000 UNITS/ML VIAL MC ONE (13:45)
--- NOTE | 2022-05-12 14:00 | NUR ---
rt notes 1400 Placed pt on 100% fio2, pt was desaturating to low 80s. pt on dialysis. will cont to monitor pt.
[2022-05-12] MEDS ORDERED: ALBUMIN HUMAN 25% 0 ML IV ONE (14:52)
--- NOTE | 2022-05-12 15:00 | NUR ---
PT NOT TOLERATING DIALYSIS, BLOOD PRESSURE DECREASED, HEART RATE INCREASED, OXYGEN LEVELS DESATURATING TO 80%. DIALYSIS STOPPED. LEVOPHED INCREASED, FIO2 INCREASED TO 100%. VITAL SIGNS IMPROVING. WILL CONTINUE TO MONITOR
--- NOTE | 2022-05-12 19:26 | NUR ---
SBAR REPORT GIVEN TO LASHAWN RN, ALL CARES ENDORSED.
[2022-05-12] MEDS ORDERED: NOREPINEPHRINE BITARTRATE 16 MG in NS 234 ML IV PRN (22:00)
[2022-05-13] VITALS (19 sets, daily range): BP systolic 85–115
[2022-05-13] MEDS ORDERED: VASOPRESSIN 40 UNITS in NS 38 ML IV PRN (01:15)
[2022-05-13] MEDS ORDERED: PHENYLEPHRINE HCL 100 MG in NS 240 ML IV PRN (01:15)
[2022-05-13] MEDS ORDERED: NOREPINEPHRINE 4 MG/4 ML VIAL IV ONE ×2 (02:46→05:40)
[2022-05-13] MEDS: ALBUTEROL SULFATE 0.083% 2.5 MG/3 ML VIAL.NEB INH SCH ×4 (03:30→12:04)
[2022-05-13] MEDS: INSULIN REGULAR, HUMAN 100 UNITS/ML, 3 ML VIAL (humuLIN R) SUBCUT PRN (07:04)
[2022-05-13] MEDS ORDERED: VASOPRESSIN 20 UNITS/ML VIAL IV ONE (07:22)
--- NOTE | 2022-05-13 08:00 | NUR ---
AM ASSESSMENT PT ON LEVOPHED DRIP 16 MG(1 MCG/KG/MIN), BP 90/60, IVF 1/2 NS AT 100 ML PER HR RUNNING THRU CENTRAL LINE. MECHANICALLY INTUBATED, TRACHED, DNR STATUS, EDEMA TO ALL EXTREMITIES.
--- NOTE | 2022-05-13 08:20 | NUR ---
RT NOTES FIO2 TO 0.80, Dr Claros at bedside speaking to pt's family.
[2022-05-13 10:06] LABS: CALCIUM 7.7 mg/dL (8.4-11.0); CREATININE 2.36 mg/dL (0.55-1.30)
[2022-05-13 10:09] LABS: BASOPHILS % (AUTO) 0.1 % (0.0-2.0); EOSINOPHILS % (AUTO) 0.1 % (0.0-4.0); HEMATOCRIT 27.3 % (36-54); LYMPHOCYTES # (AUTO) 0.5 K/uL (1.0-5.5); LYMPHOCYTES % (AUTO) 2.6 % (20.5-51.5); MEAN CORPUSCULAR VOLUME 101 fL (79.0-98.0); MONOCYTES # (AUTO) 0.4 K/uL (0.0-1.0); MONOCYTES % (AUTO) 2.3 % (1.7-9.3); NEUTROPHILS % (AUTO) 94.9 % (40.0-70.0); PLATELET COUNT (AUTO) 104 K/uL (130-430); RED CELL DISTRIBUTION WIDTH 14.8 % (9.0-15.0); WHITE BLOOD COUNT (AUTO) 17.9 K/uL (4.8-10.8)
[2022-05-13] MEDS: HONEY WOUND DRESSING 1 EACH TP SCH (10:15)
[2022-05-13] MEDS: 0.45% NACL 1,000 ML IV SCH (10:16)
[2022-05-13 10:18] LABS: POTASSIUM 6.6 mmol/L (3.5-5.1)
[2022-05-13] MEDS: HEPARIN SODIUM,PORCINE 5,000 UNITS/ML VIAL SUBCUT SCH (10:22)
--- NOTE | 2022-05-13 11:23 | NUR ---
LOW BP INITIATED VASOPRESSIN 40 UNIT DRIP, BP 78/29, 64/41. FAMILY IN THE ROOM AND MADE AWARE.
[2022-05-13] MEDS ORDERED: CALCIUM CHLORIDE 1 GM/10 ML DISP.SYRIN (14 mEq Ca++/SYR) IVP ONE (11:30)
[2022-05-13] MEDS ORDERED: INSULIN REGULAR, HUMAN 10 UNITS/0.1 ML, 3 ML VIAL IVP ONE (11:30)
[2022-05-13] MEDS ORDERED: DEXTROSE 50% JECT 50 ML DISP.SYRIN IVP ONE (11:30)
[2022-05-13] MEDS ORDERED: SODIUM BICARBONATE 8.4% JECT 50 MEQ/50 ML SYRINGE IVP ONE (11:45)
[2022-05-13] MEDS: FAMOTIDINE PF 20 MG/2 ML VIAL IVP SCH (13:37)
--- NOTE | 2022-05-13 14:46 | NUR ---
CARDIAC ACTIVITY PT'S HEART RATE WENT DOWN TO 42, BP 101/83, SATURATION 72%, PT RECEIVING LEVOPHED DRIP, VASOPRESSIN, DRIP. INCREASED RATE OF VASOPRESSIN TO 0.02 UNITS/MIN. FIO2 FROM THE VENTILATOR ON 100%.
--- NOTE | 2022-05-13 15:02 | NUR ---
PT ASYSTOLE ON [employer] MARKETING SPECIALIST, BLOOD PRESSURE UNOBTAINABLE, PUPILS FIXED, DILATED. DOPPLER MACHINE USED TO CHECK FOR PRESENCE OF PULSES. NO PULSES PALPABLE OVER CAROTID AND FEMORAL SITES, AND DOPPLER MACHINE NO AUDIBLE SOUNDS. DR LIMA OF [facility] CAME IN. WENT TO CHECK THE PATIENT AND MADE PRONOUNCEMENT.
--- NOTE | 2022-05-13 15:10 | NUR ---
JOSE ALEJANDRO CALLED UP [facility]CH SPEAKING OVERHEAD CRANE INSPECTOR. AT BEDSIDE LISTENING AND ANSWERING TO THE OVERHEAD CRANE INSPECTOR. SHE WAS MADE AWARE THAT HER . DR LIMA WAS IN THE ROOM. SHE DECLINED AUTOPSY.
--- NOTE | 2022-05-13 15:29 | NUR ---
[facility] WILL MOVE FORWARD ON THE CASE SPOKE WITH Gloria VEGA [facility] WILL CALL BACK IN ONE HOUR
--- NOTE | 2022-05-13 15:41 | NUR ---
MATERIALS COORDINATOR NOTIFIED THIS WILL NOT BE A MATERIALS COORDINATOR'S CASE. I SPOKE WITH ADAMARIS.
--- NOTE | 2022-05-13 16:11 | NUR ---
JERRY CALLED [facility], IN [place], , SPOKE TO SINDY. EXPECTED TIME OF PRODUCE TEAM MEMBER IN 2 HRS.
--- NOTE | 2022-05-13 17:59 | NUR ---
POST MORTEM CARE CLEANED BODY, [place]AY CATHETER, CENTRAL LINE, TRACH TUBE REMOVED. PLACED BODY IN A BAG. DID NOT HAVE PERSONAL BELONGINGS ACCORDING TO THE FAMILY.
[2022-05-13] MEDS ORDERED: PIPERACILLIN/TAZO 2.25G/DEX-IS 50 ML IV SCH (18:00)
--- NOTE | 2022-05-13 18:14 | NUR ---
[facility] CALLED BACK ON A RECORDED LINE AND SAID THEY WILL NOT BE PURSUING ORGAN DONATION
== END 2022-05-13 18:30 | DRG 720 ==
LOC: SED 16:18 → SIC 18:46
PROVIDERS: ADMIT Internal Medicine; ATTEND Internal Medicine
PROC: 5A1955Z Respiratory Ventilation, Greater than 96 Consecutive Hours (ICD-10-PCS; principal; 2022-05-03)
PROC: 02HV33Z Insertion of Infusion Device into Superior Vena Cava, Percutaneous Approach (ICD-10-PCS; 2022-05-05)
PROC: B548ZZA Ultrasonography of Superior Vena Cava, Guidance (ICD-10-PCS; 2022-05-05)
PROC: 02HV33Z Insertion of Infusion Device into Superior Vena Cava, Percutaneous Approach (ICD-10-PCS; 2022-05-11)
PROC: B548ZZA Ultrasonography of Superior Vena Cava, Guidance (ICD-10-PCS; 2022-05-11)
DX: A41.9 Sepsis, unspecified organism (principal); J96.21 Acute and chronic respiratory failure with hypoxia; R65.21 Severe sepsis with septic shock; E43 Unspecified severe protein-calorie malnutrition; N17.9 Acute kidney failure, unspecified; J15.1 Pneumonia due to Pseudomonas; Z99.11 Dependence on respirator [ventilator] status; Z93.0 Tracheostomy status; R74.01 Elevation of levels of liver transaminase levels; R53.81 Other malaise; D64.9 Anemia, unspecified; Z20.822 Contact with and (suspected) exposure to COVID-19; E83.52 Hypercalcemia; E88.09 Other disorders of plasma-protein metabolism, not elsewhere classified; R13.10 Dysphagia, unspecified; Z79.1 Long term (current) use of non-steroidal anti-inflammatories (NSAID); Z79.899 Other long term (current) drug therapy; Z68.23 Body mass index [BMI] 23.0-23.9, adult; I46.9 Cardiac arrest, cause unspecified; Z66 Do not resuscitate
CPT/HCPCS: 36415; 36600; 71045; 71250-TC; 76376; 76770; 80048; 80053; 80200; 80202; 81000; 82330; 82570; 82800-TC; 82803-TC; 82962; 83605; 83735; 84100; 84302; 84484; 85007; 85025; 85027; 85610-TC; 85651-TC; 85730-TC; 86140; 87040; 87070-TC; 87081; 87086; 87205-TC; 90935; 93005; 94002; 94003; 94640; 96374; 99291; J0692; J1030; J1644; J1815; J2370; J2543; J3260; J3370; J3490; J7050; J7060; J7613; P9046